=== PATIENT | male | born 1955 | race Two or more races ===

== ENCOUNTER 2018-06-10 19:22 | Emergency (ER) | payer SELFPAY ==
[~2018-06-10] VITALS: Ht 165.1 cm; Wt 99.8 kg
[~2018-06-10 19:22] MED LIST: AMLO5TAB4 PO; ASPI-1153 PO; BENA5TAB5 PO; METO-356 PO
[2018-06-10] MEDS ORDERED: DOXYCYCLINE HYCLATE (100 MG) 100 MG TABLET ONE (21:29)
[2018-06-10] MEDS ORDERED: KETOROLAC TROMETHAMINE INJ 60 MG/2 ML VIAL IM ONE (21:41)
[2018-06-10] MEDS: KETOROLAC TROMETHAMINE INJ 60 MG/2 ML VIAL IM ONE (21:43)
--- NOTE | 2018-06-10 22:04 | NUR ---
PT LEFT FOR CT VIA [facility]NEY
--- NOTE | 2018-06-10 22:12 | NUR ---
PT RETURNED FROM CT.
[2018-06-10 22:55] VITALS: BP 128/87
== END 2018-06-10 22:58 | disposition home or self-care (01) ==
LOC: ER 19:26
DX: M54.41 Lumbago with sciatica, right side (principal); I10 Essential (primary) hypertension; Z95.818 Presence of other cardiac implants and grafts; Z79.82 Long term (current) use of aspirin; Z79.899 Other long term (current) drug therapy
CPT/HCPCS: 72131; 96372; 99284; A4606; J1885